=== PATIENT | female | born 1965 | race Caucasian/White ===

== ENCOUNTER 2020-08-16 13:54 | Emergency (ER) | payer OTHER ==
[2020-08-16] MEDS ORDERED: Bupivacaine 0.5% 10 ML VIAL ONE (16:14)
== END 2020-08-16 17:38 | disposition home or self-care (01) ==
LOC: ERS 13:54
DX: L03.011 Cellulitis of right finger (principal)
CPT/HCPCS: 10060; J3490

== ENCOUNTER 2020-09-12 11:40 | Outpatient (CLI) | payer OTHER | END 2020-09-12 11:41 | disposition home or self-care (01) | LOC: BICRAD 11:40 | PROVIDERS: ATTEND Internal Medicine | DX: Z02.71 Encounter for disability determination (principal); M41.9 Scoliosis, unspecified; M47.816 Spondylosis without myelopathy or radiculopathy, lumbar region; Z98.890 Other specified postprocedural states | CPT/HCPCS: 72100 ==

== ENCOUNTER 2021-12-03 09:24 | Outpatient (CLI) | payer OTHER | END 2021-12-03 09:25 | disposition home or self-care (01) | LOC: BICMAMMO 09:24 | PROVIDERS: ATTEND Student in an Organized Health Care Education/Training Program | DX: N63.10 Unspecified lump in the right breast, unspecified quadrant (principal) | CPT/HCPCS: 77066; G0279 ==

== ENCOUNTER → 2021-12-25 | Day surgery (SDC) | payer OTHER | END | disposition home or self-care (01) | LOC: BICULT 12:18 | PROVIDERS: ATTEND Student in an Organized Health Care Education/Training Program | PROC: 0H9T3ZX Drainage of Right Breast, Percutaneous Approach, Diagnostic (ICD-10-PCS; principal; 2021-12-25) | PROC: 07D53ZX Extraction of Right Axillary Lymphatic, Percutaneous Approach, Diagnostic (ICD-10-PCS; principal; 2021-12-25) | DX: C50.811 Malignant neoplasm of overlapping sites of right female breast (principal); C77.3 Secondary and unspecified malignant neoplasm of axilla and upper limb lymph nodes; Z88.0 Allergy status to penicillin; Z88.2 Allergy status to sulfonamides | CPT/HCPCS: 19083; 38505; 88305; 88341; 88342; 88361 ==

== ENCOUNTER 2022-02-19 08:47 | Outpatient (CLI) | payer OTHER, SELFPAY ==
[2022-02-19] MEDS ORDERED: Iopamidol 370 76% 100 ML VIAL ONE (14:32)
== END 2022-02-19 08:48 | disposition home or self-care (01) ==
LOC: CT 08:47
PROVIDERS: ATTEND Internal Medicine Hematology & Oncology
DX: C50.411 Malignant neoplasm of upper-outer quadrant of right female breast (principal); K76.0 Fatty (change of) liver, not elsewhere classified; I85.00 Esophageal varices without bleeding; I86.4 Gastric varices; R59.0 Localized enlarged lymph nodes; R91.1 Solitary pulmonary nodule; R93.7 Abnormal findings on diagnostic imaging of other parts of musculoskeletal system
CPT/HCPCS: 71260; 74177; 78306; 82565; A9503

== ENCOUNTER 2022-04-28 19:23 | Inpatient (IN) | payer BC ==
[~2022-04-28 19:23] MED LIST: Iopamidol-370 76% 500 ML 1 ML ONE
[2022-04-28 20:10] LABS: Hemoglobin 5.9 g/dL (12.0-16.0); Mean Corpuscular HGB CONC 36.3 g/dL (32.0-36.0); Mean Corpuscular Volume 96.6 fl (78.0-98.0); Mean Platelet Volume 13.6 fL (7.4-10.4); Platelet Count 4 10x3/uL (130-400); RBC Distribution Width 15.5 % (11.5-14.5); Red Blood Cell (RBC) Count 1.67 mill/uL (4.20-5.40); White Blood Cell (WBC) Count 0.2 10x3/uL (4.8-10.8)
[2022-04-28 20:23] LABS: ALT (SGPT) 12 U/L (8-55); AST (SGOT) 20 U/L (5-34); Albumin 3.5 g/dL (3.5-5.0); Alkaline Phosphatase 54 U/L (40-110); Anion Gap 15 mmol/L (10-20); BUN (Urea Nitrogen) 25 mg/dL (9.8-20.1); Bilirubin, Total 3.1 mg/dL (0.2-1.2); Calc. Creatinine Clearance 0 mL/min (70-130); Calcium 8.7 mg/dL (7.8-10.44); Carbon Dioxide 19 mmol/L (22-29); Chloride 100 mmol/L (98-107); Estimated GFR 38; Globulin 2.5 g/dL (2.4-3.5); Glucose 96 mg/dL (70-105); Potassium 3.4 mmol/L (3.5-5.1); Sodium 131 mmol/L (136-145)
[2022-04-28] MEDS ORDERED: Cefepime 2 GM VIAL ONE (20:43)
[2022-04-28] MEDS ORDERED: Vancomycin 1 GM/200 ML (PREMIX) BAG ONE (20:43)
[2022-04-28] MEDS ORDERED: NOREPINEPHRINE 8 MG/250 ML-D5W 250 ML ONE (21:13)
[2022-04-28] MEDS ORDERED: Ondansetron ODT 4 MG TAB PO PRN (22:35)
[2022-04-28] MEDS ORDERED: Acetaminophen 650 MG Suppository PR PRN (22:35)
[2022-04-28] MEDS ORDERED: Acetaminophen 325 MG TAB PO PRN (22:35)
[2022-04-28] MEDS ORDERED: Ondansetron PF 4 MG/2 ML Vial IVP PRN (22:35)
[2022-04-28] MEDS ORDERED: FENTANYL 50 MCG/ML 1 ML VIAL ONE (22:59)
[2022-04-28] MEDS ORDERED: Electrolyte Replacement Protocol 1 EACH FS SCH (23:00)
[2022-04-28 23:11] LABS: Magnesium 1.8 mg/dL (1.6-2.6)
[2022-04-29] MEDS ORDERED: Pharmacy to Dose : VANC/ABX'S IVPB PRN (00:30)
[2022-04-29 00:40] LABS: Bacteria/HPF None Seen HPF (None Seen); Bilirubin Negative (Negative); Blood, Urine 1+ (Negative); Clarity Turbid (Clear); Glucose, Urine (Dipstick) Normal (Negative); Ketone, Urine Trace mg/dL (Negative); Leukocyte Negative Leu/uL (Negative); Nitrite Negative (Negative); Protein, Urine (Dipstick) 50 mg/dL (Neg-Trace); RBC/HPF 0-3 HPF (0-3); Squamous Epithelial 0-3 HPF (0-3); Urobilinogen Normal mg/dL (Less than 2); pH, Urine 5.5 (5.0-9.0)
[2022-04-29 00:41] LABS: Lactic Acid 8.2 mmol/L (0.5-2.2)
[2022-04-29 00:53] LABS: SARS-CoV-2 NAA Rapid Test Not Detected (NotDetected)
[2022-04-29 03:25] VITALS: BMI 24.1
[2022-04-29 06:10] LABS: ALT (SGPT) 13 U/L (8-55); AST (SGOT) 17 U/L (5-34); Albumin 2.9 g/dL (3.5-5.0); Alkaline Phosphatase 42 U/L (40-110); Anion Gap 14 mmol/L (10-20); BUN (Urea Nitrogen) 21 mg/dL (9.8-20.1); Bilirubin, Direct 2.7 mg/dL (0.1-0.3); Calc. Creatinine Clearance 62 mL/min (70-130); Calcium 7.1 mg/dL (7.8-10.44); Carbon Dioxide 13 mmol/L (22-29); Chloride 108 mmol/L (98-107); Estimated GFR 68; Glucose 104 mg/dL (70-105); Hemoglobin 6.5 g/dL (12.0-16.0); Mean Corpuscular HGB CONC 35.3 g/dL (32.0-36.0); Mean Corpuscular Hemoglobin 32.9 pg (27.0-31.0); Mean Corpuscular Volume 93.1 fl (78.0-98.0); Platelet Count 24 10x3/uL (130-400); Protein, Total 4.9 g/dL (6.0-8.3); Red Blood Cell (RBC) Count 1.98 mill/uL (4.20-5.40); Sodium 132 mmol/L (136-145); White Blood Cell (WBC) Count 0.2 10x3/uL (4.8-10.8)
[2022-04-29] MEDS: Sodium Chloride 0.9% 1,000 ML IV SCH ×2 (06:47→09:52)
[2022-04-29] MEDS ORDERED: metroNIDAZOLE 500 MG in Premix Bag 1 BAG IVPB SCH (07:15)
[2022-04-29] MEDS: Potassium Chloride 20 MEQ TAB PO SCH ×2 (07:43→09:51)
[2022-04-29] MEDS: NOREPINEPHRINE 8 MG/250 ML-D5W 250 ML IVPB SCH ×4 (07:43→22:52)
[2022-04-29] MEDS ORDERED: VANCOMYCIN 1.25 GM/250 ML BAG 1.25 GM in Premix Bag 1 BAG IVPB SCH (08:00)
[2022-04-29] MEDS ORDERED: Cefepime 1 GM in Sodium Chloride 0.9% 100 ML IVPB SCH (08:00)
[2022-04-29] MEDS ORDERED: Magnesium 2 GM/50 ML(in water) 2 GM in Premix Bag 1 BAG IVPB SCH (08:00)
[2022-04-29 08:15] LABS: Lactic Acid 7.1 mmol/L (0.5-2.2)
[2022-04-29] MEDS ORDERED: Albumin 25% 25 GM/100 ML BOT IVPB SCH ×2 (09:30→23:30)
[2022-04-29] MEDS ORDERED: Morphine 4 MG/ML VIAL SLOW IVP PRN (09:31)
[2022-04-29] MEDS: Morphine 4 MG/ML VIAL SLOW IVP PRN ×3 (09:52→19:40)
[2022-04-29] MEDS ORDERED: Pantoprazole 40 MG VIAL IVP SCH (10:00)
[2022-04-29] MEDS: Sodium Chloride 0.45% 1,000 ML IV SCH ×3 (10:02→22:52)
[2022-04-29 10:22] LABS: Hemoglobin 7.6 g/dL (12.0-16.0); Platelet Count 53 10x3/uL (130-400)
[2022-04-29] MEDS: metroNIDAZOLE 500 MG in Premix Bag 1 BAG IVPB SCH ×2 (14:01→20:10)
[2022-04-29] MEDS ORDERED: Meropenem 1 GM in Sodium Chloride 0.9% 100 ML IVPB SCH (16:00)
[2022-04-29] MEDS ORDERED: Midazolam HCl 2 mg/2 ml Vial SLOW IVP SCH (17:30)
[2022-04-29] MEDS: Potassium Chloride 20 MEQ in Premix Bag 1 BAG IVPB SCH ×2 (20:10→22:18)
[2022-04-29 20:23] LABS: Campy jejuni + coli by PCR Negative (Negative); STEC Shiga Toxin 1+2 Negative (Negative); Salmonella spp. by PCR Negative (Negative); Shigella spp + EIEC by PCR Negative (Negative)
[2022-04-29] MEDS ORDERED: Vancomycin HCl 500 MG in Sodium Chloride 0.9% 100 ML IVPB SCH (21:00)
[2022-04-29] MEDS: Midazolam HCl 2 mg/2 ml Vial SLOW IVP PRN (21:01)
[2022-04-29] MEDS: Meropenem 1 GM in Sodium Chloride 0.9% 100 ML IVPB SCH (22:51)
[2022-04-30 01:36] LABS: Potassium 3.9 mmol/L (3.5-5.1)
[2022-04-30] MEDS: NOREPINEPHRINE 8 MG/250 ML-D5W 250 ML IVPB SCH ×3 (02:54→18:49)
[2022-04-30 04:33] LABS: Hemoglobin 10.5 g/dL (12.0-16.0); Mean Corpuscular HGB CONC 34.6 g/dL (32.0-36.0); Mean Corpuscular Volume 89.6 fl (78.0-98.0); Mean Platelet Volume 13.3 fL (7.4-10.4); Platelet Count 11 10x3/uL (130-400); RBC Distribution Width 14.7 % (11.5-14.5); Red Blood Cell (RBC) Count 3.38 mill/uL (4.20-5.40); White Blood Cell (WBC) Count 0.6 10x3/uL (4.8-10.8)
[2022-04-30] MEDS: metroNIDAZOLE 500 MG in Premix Bag 1 BAG IVPB SCH (06:07)
[2022-04-30] MEDS: Midazolam HCl 2 mg/2 ml Vial SLOW IVP PRN (06:20)
[2022-04-30 07:09] LABS: Lactic Acid 5.1 mmol/L (0.5-2.2)
[2022-04-30 07:11] LABS: ALT (SGPT) 17 U/L (8-55); AST (SGOT) 30 U/L (5-34); Albumin 3.3 g/dL (3.5-5.0); Alkaline Phosphatase 30 U/L (40-110); Anion Gap 19 mmol/L (10-20); BUN (Urea Nitrogen) 29 mg/dL (9.8-20.1); Bilirubin, Total 14.3 mg/dL (0.2-1.2); Calc. Creatinine Clearance 53 mL/min (70-130); Chloride 104 mmol/L (98-107); Estimated GFR 50; Globulin 1.7 g/dL (2.4-3.5); Glucose 112 mg/dL (70-105); Potassium 3.9 mmol/L (3.5-5.1); Sodium 128 mmol/L (136-145)
[2022-04-30 07:24] LABS: Calcium 6.8 mg/dL (7.8-10.44); Carbon Dioxide 9 mmol/L (22-29)
[2022-04-30] MEDS ORDERED: Calcium Gluconate 4.6 MEQ in Sodium Chloride 0.9% 100 ML IVPB SCH (07:33)
[2022-04-30] MEDS ORDERED: Sodium Bicarb 50 MEQ/50 ML VIAL FS SCH (08:00)
[2022-04-30] MEDS: Pantoprazole 40 MG VIAL IVP SCH (08:30)
[2022-04-30] MEDS: Sodium Chloride 0.45% 1,000 ML IV SCH (08:45)
[2022-04-30] MEDS: Sodium Bicarbonate 150 MEQ in Dextrose 5% in Water 1,000 ML IV SCH ×2 (10:25→20:30)
[2022-04-30 10:46] LABS: Reticulocyte Count 0.4 % (0.5-1.5)
[2022-04-30] MEDS: Meropenem 1 GM in Sodium Chloride 0.9% 100 ML IVPB SCH ×2 (11:12→23:08)
[2022-04-30] MEDS ORDERED: Vancomycin HCl 750 MG in Sodium Chloride 0.9% 250 ML 250 ML IVPB SCH (12:00)
[2022-04-30 17:19] VITALS: BP 102/48
[2022-04-30] MEDS: Hydrocortisone Sod Succ/PF 100 mg/2 ml Vial IVP SCH (20:33)
[2022-04-30] MEDS: Morphine 4 MG/ML VIAL SLOW IVP PRN (23:08)
[2022-05-01] MEDS: NOREPINEPHRINE 8 MG/250 ML-D5W 250 ML IVPB SCH (03:05)
[2022-05-01 05:06] LABS: Lactic Acid 5.7 mmol/L (0.5-2.2)
[2022-05-01 05:21] LABS: ALT (SGPT) 48 U/L (8-55); AST (SGOT) 71 U/L (5-34); Albumin 2.6 g/dL (3.5-5.0); Alkaline Phosphatase 31 U/L (40-110); Anion Gap 18 mmol/L (10-20); BUN (Urea Nitrogen) 31 mg/dL (9.8-20.1); Bilirubin, Total 16.6 mg/dL (0.2-1.2); Calc. Creatinine Clearance 76 mL/min (70-130); Carbon Dioxide 13 mmol/L (22-29); Chloride 100 mmol/L (98-107); Estimated GFR 78; Globulin 1.9 g/dL (2.4-3.5); Glucose 151 mg/dL (70-105); Potassium 3.2 mmol/L (3.5-5.1); Protein, Total 4.5 g/dL (6.0-8.3); Sodium 128 mmol/L (136-145)
[2022-05-01] MEDS ORDERED: Electrolyte Replacement Protocol FS PRN (05:30)
[2022-05-01 05:53] LABS: Band 16 % (5-11); Hemoglobin 9.8 g/dL (12.0-16.0); Hypochromia SLIGHT = 6-15 cells (100X) (0-5/hpf); Lymphocytes 24 % (21-51); MDiff Complete? YES; Mean Corpuscular HGB CONC 35.4 g/dL (32.0-36.0); Mean Corpuscular Hemoglobin 31.4 pg (27.0-31.0); Mean Corpuscular Volume 88.5 fl (78.0-98.0); Mean Platelet Volume 11.6 fL (7.4-10.4); Monocytes 8 % (0-10); Neutrophil 52 % (42-75); Platelet Count 12 10x3/uL (130-400); Platelet Morphology Comment Appears Decreased; RBC Distribution Width 14.9 % (11.5-14.5); Red Blood Cell (RBC) Count 3.13 mill/uL (4.20-5.40); White Blood Cell (WBC) Count 1.1 10x3/uL (4.8-10.8)
[2022-05-01] MEDS ORDERED: Magnesium 2 GM/50 ML(in water) 2 GM in Premix Bag 1 BAG IVPB SCH (06:00)
[2022-05-01] MEDS: Potassium Chloride 20 MEQ in Premix Bag 1 BAG IVPB SCH ×2 (06:06→08:29)
[2022-05-01] MEDS: Sodium Bicarbonate 150 MEQ in Dextrose 5% in Water 1,000 ML IV SCH (07:53)
[2022-05-01 08:33] VITALS: TEMP 98.6
[2022-05-01] MEDS: Pantoprazole 40 MG VIAL IVP SCH (10:11)
[2022-05-01] MEDS: Hydrocortisone Sod Succ/PF 100 mg/2 ml Vial IVP SCH ×2 (10:11→16:37)
[2022-05-01 11:20] LABS: Vancomycin, Trough 9.5 ug/mL
[2022-05-01] MEDS ORDERED: VANCOMYCIN 1.25 GM/250 ML BAG 1.25 GM in Premix Bag 1 BAG IVPB SCH (12:00)
[2022-05-01] MEDS ORDERED: Meropenem 1 GM in Sodium Chloride 0.9% 100 ML IVPB SCH (12:00)
[2022-05-01 12:16] LABS: Potassium 3.2 mmol/L (3.5-5.1)
== END 2022-05-01 15:50 | disposition hospice, home (50) | DRG 314 ==
LOC: ERS 19:23 → CCU 22:19
PROVIDERS: ADMIT Student in an Organized Health Care Education/Training Program; ATTEND Internal Medicine
PROC: 3E033XZ Introduction of Vasopressor into Peripheral Vein, Percutaneous Approach (ICD-10-PCS; principal; 2022-04-28)
PROC: 30233R1 Transfusion of Nonautologous Platelets into Peripheral Vein, Percutaneous Approach (ICD-10-PCS; 2022-04-28)
PROC: 30233N1 Transfusion of Nonautologous Red Blood Cells into Peripheral Vein, Percutaneous Approach (ICD-10-PCS; 2022-04-28)
PROC: 0JPT3XZ Removal of Tunneled Vascular Access Device from Trunk Subcutaneous Tissue and Fascia, Percutaneous Approach (ICD-10-PCS; 2022-04-29)
PROC: 5A09457 Assistance with Respiratory Ventilation, 24-96 Consecutive Hours, Continuous Positive Airway Pressure (ICD-10-PCS; 2022-04-29)
DX: T80.212A Local infection due to central venous catheter, initial encounter (principal); A41.51 Sepsis due to Escherichia coli [E. coli]; D61.810 Antineoplastic chemotherapy induced pancytopenia; R65.21 Severe sepsis with septic shock; G93.41 Metabolic encephalopathy; N17.9 Acute kidney failure, unspecified; Z16.12 Extended spectrum beta lactamase (ESBL) resistance; E87.1 Hypo-osmolality and hyponatremia; Z66 Do not resuscitate; Z51.5 Encounter for palliative care; C50.919 Malignant neoplasm of unspecified site of unspecified female breast; E88.09 Other disorders of plasma-protein metabolism, not elsewhere classified; Y83.8 Other surgical procedures as the cause of abnormal reaction of the patient, or of later complication, without mention of misadventure at the time of the procedure; T45.1X5A Adverse effect of antineoplastic and immunosuppressive drugs, initial encounter; E87.6 Hypokalemia; K52.89 Other specified noninfective gastroenteritis and colitis; Z88.0 Allergy status to penicillin; Z88.2 Allergy status to sulfonamides; Z79.899 Other long term (current) drug therapy
CPT/HCPCS: 36415; 36416; 36430; 71045; 74177; 76705; 80048; 80053; 80076; 80202; 81003; 81015; 82248; 83010; 83605; 83615; 83630; 83735; 85025; 85046; 86850; 86900; 86901; 87040; 87071; 87077; 87081; 87086; 87149; 87186; 87324; 87449; 87505; 87804; 93005; 94640; 94660; C9113; J0610; J0692; J1720; J2185; J2250; J2270; J3010; J3370; J3475; J3480; J3490; J7050; J7070; J7620; P9016; P9035; P9047; Q9967; U0002